=== PATIENT | female | born 1970 | race Caucasian/White ===

== ENCOUNTER 2019-12-03 15:12 | Inpatient (IN) | payer MEDICAID, OTHER ==
[~2019-12-03] VITALS: Ht 152.4 cm; Wt 64.1 kg
[~2019-12-03 15:12] MED LIST: FLUP10 PO; PARO20TA24 PO; TRIH5TAB2 PO
[2019-12-03] MEDS ORDERED: PROP20TA18 PO (16:40)
[2019-12-03] MEDS ORDERED: BENZ2TAB10 PO (16:40)
[2019-12-03 16:47] LABS: BASOPHILS % (AUTO) 0.3 % (0.0-2.0); EOSINOPHILS % (AUTO) 0.8 % (1.0-6.0); HEMATOCRIT 37.8 % (36-46); HEMOGLOBIN 12.4 g/dL (12.0-16.0); LYMPHOCYTES # (AUTO) 2.2 K/uL (1.0-4.8); LYMPHOCYTES % (AUTO) 28.5 % (22.0-44.0); MEAN CORPUSCULAR HEMOGLOBIN 30.7 pg (26.0-34.0); MEAN CORPUSCULAR HGB CONC 32.7 G/dL (31.0-37.0); MEAN CORPUSCULAR VOLUME 94 fL (80-100); MONOCYTES # (AUTO) 0.6 K/uL (0.1-1.0); MONOCYTES % (AUTO) 7.7 % (2.0-9.0); NEUTROPHILS # (AUTO) 4.9 K/uL (1.8-7.7); NEUTROPHILS % (AUTO) 62.7 % (40.0-70.0); PLATELET COUNT (AUTO) 229 K/uL (150-450); RED BLOOD CELL COUNT(AUTO) 4.02 MIL/uL (4.00-5.20); RED CELL DISTRIBUTION WIDTH 13.9 % (11.5-14.5)
[2019-12-03 17:01] LABS: ANION GAP 10 mmol/L (8-16); CALCIUM, TOTAL 9.7 mg/dL (8.8-10.5); CARBON DIOXIDE 24 mmol/L (22-29); CHLORIDE 103 mmol/L (98-107); CREATININE 1.03 mg/dL (0.60-1.30); GLOMERULAR FILTR. RATE CALC 57 mL/min (>60); GLUCOSE,RANDOM 75 mg/dL (70-110); SODIUM SERUM 137 mmol/L (136-145); UREA NITROGEN, BLOOD 22 mg/dL (7-18)
[2019-12-03 17:16] LABS: ALANINE AMINOTRANSFERASE 28 U/L (12-78); ALBUMIN 3.8 g/dL (3.4-5.0); ALKALINE PHOSPHATASE 29 U/L (46-116); ASPARTATE AMINOTRANSFERASE 18 U/L (15-37); BILIRUBIN,TOTAL 0.6 mg/dL (0.1-1.0); HCG,QUANTITATIVE 2 mIU/mL (0-6); THYROID STIMULATING HORMONE 0.98 uIU/mL (0.36-3.74); TOTAL PROTEIN, SERUM 7.5 g/dL (6.4-8.2)
[2019-12-03 18:09] LABS: AMPHET/METH SCREEN,URINE NEGATIVE (NEGATIVE); BARBITURATE SCREEN, URINE NEGATIVE (NEGATIVE); BENZODIAZEPINES SCREEN,URINE NEGATIVE (NEGATIVE); CANNABINOID SCREEN,URINE NEGATIVE (NEGATIVE); COCAINE SCREEN,URINE NEGATIVE (NEGATIVE); METHADONE SCREEN, URINE NEGATIVE (NEGATIVE); OPIATE SCREEN,URINE NEGATIVE (NEGATIVE)
[2019-12-03 18:12] LABS: APPEARANCE,URINE CLOUDY (CLEAR); BILIRUBIN,URINE NEGATIVE (NEGATIVE); GLUCOSE, URINE (UA) NEGATIVE (NEGATIVE); KETONES,URINE NEGATIVE (NEGATIVE); LEUKOCYTE ESTERASE ,URINE LARGE (NEGATIVE); NITRATE,URINE POSITIVE (NEGATIVE); OCCULT BLOOD,URINE NEGATIVE (NEGATIVE); PROTEIN,URINE NEGATIVE (NEGATIVE); UROBILINOGEN,URINE 0.2 mg/dL (<=1.0)
[2019-12-03 18:13] LABS: PHENCYCLIDINE SCREEN,URINE NEGATIVE (NEGATIVE)
[2019-12-03 18:21] LABS: BACTERIA,URINE Many /HPF (None Seen); RBC,URINE 0-2 /HPF (0-2)
[2019-12-03 18:22] LABS: WBC,URINE 26-50 /HPF (0-5)
[2019-12-03 18:24] LABS: SQUAMOUS EPITHELIAL CELL,UR Few /LPF (None Seen)
[2019-12-03] MEDS ORDERED: CefTRIAXone 1 GM/DEXTROSE 50 ML IV ONE (19:00)
[2019-12-03] MEDS ORDERED: SODIUM CHLORIDE 0.9% 1,000 ML IV ONE ×2 (19:45→21:15)
[2019-12-03] MEDS ORDERED: MAGNESIUM HYDROXIDE SUSPENSION 30 ML UDCUP PO PRN (21:15)
[2019-12-03] MEDS ORDERED: ACETAMINOPHEN 325 MG TABLET PO PRN (21:15)
[2019-12-03] MEDS ORDERED: HYDROCODONE/ACETAMINOPHEN 5-325 MG TABLET PO PRN (21:15)
[2019-12-03] MEDS ORDERED: ZOLPIDEM TARTRATE 5 MG TABLET PO PRN (21:15)
[2019-12-03] MEDS ORDERED: ONDANSETRON HCL 4 MG/2 ML VIAL IVP PRN (21:15)
[2019-12-03] MEDS ORDERED: MORPHINE SULFATE 2 MG/ML SYRINGE IVP PRN (21:15)
[2019-12-03] MEDS ORDERED: BISACODYL 10 MG RECTAL RECTAL SUPPOSITORY PR PRN (21:15)
[2019-12-03 22:20] VITALS: BP 113/71
[2019-12-03] MEDS: HEPARIN SODIUM,PORCINE 5,000 UNITS/ML VIAL SQ SCH (23:01)
[2019-12-04 04:48] VITALS: BP 103/70
[2019-12-04 06:21] LABS: BASOPHILS % (AUTO) 0.5 % (0.0-2.0); EOSINOPHILS % (AUTO) 1.1 % (1.0-6.0); HEMATOCRIT 35.2 % (36-46); HEMOGLOBIN 11.4 g/dL (12.0-16.0); LYMPHOCYTES # (AUTO) 1.9 K/uL (1.0-4.8); MEAN CORPUSCULAR HEMOGLOBIN 30.9 pg (26.0-34.0); MEAN CORPUSCULAR HGB CONC 32.4 G/dL (31.0-37.0); MEAN CORPUSCULAR VOLUME 95 fL (80-100); MONOCYTES # (AUTO) 0.4 K/uL (0.1-1.0); MONOCYTES % (AUTO) 7.6 % (2.0-9.0); NEUTROPHILS # (AUTO) 2.8 K/uL (1.8-7.7); NEUTROPHILS % (AUTO) 53.8 % (40.0-70.0); PLATELET COUNT (AUTO) 205 K/uL (150-450); RED CELL DISTRIBUTION WIDTH 14.2 % (11.5-14.5)
[2019-12-04 06:37] LABS: CALCIUM, TOTAL 8.9 mg/dL (8.8-10.5); CREATININE 1.03 mg/dL (0.60-1.30); POTASSIUM 3.8 mmol/L (3.5-5.1)
[2019-12-04 07:21] VITALS: BP 129/85
[2019-12-04] MEDS: HEPARIN SODIUM,PORCINE 5,000 UNITS/ML VIAL SQ SCH ×3 (08:54→23:26)
[2019-12-04] MEDS: DOCUSATE SODIUM 100 MG CAPSULE PO SCH ×2 (08:54→20:13)
[2019-12-04] MEDS: PARoxetine HCL 20 MG TABLET PO SCH (08:55)
[2019-12-04] MEDS: BENZTROPINE MESYLATE 2 MG TABLET PO SCH ×2 (08:55→20:13)
[2019-12-04] MEDS: TRIHEXYPHENIDYL HCL 5 MG TABLET PO SCH ×3 (08:56→20:13)
[2019-12-04] MEDS: PANTOPRAZOLE SODIUM 40 MG DR TABLET PO SCH (08:56)
[2019-12-04] MEDS ORDERED: PROPRANOLOL HCL 20 MG TABLET PO SCH (09:00)
[2019-12-04] MEDS: PROPRANOLOL HCL 10 MG TABLET PO SCH ×2 (09:09→20:13)
[2019-12-04 11:30] VITALS: BP 139/89
[2019-12-04 15:57] VITALS: BP 134/76
[2019-12-04 19:27] VITALS: BP 143/87
[2019-12-04] MEDS ORDERED: SODIUM CHLORIDE 0.9% 500 ML IV ONE (20:10)
[2019-12-04] MEDS ORDERED: CefTRIAXone 1 GM/DEXTROSE 50 ML IV SCH (21:00)
[2019-12-05 00:07] VITALS: BP 123/80
[2019-12-05 04:45] VITALS: BP 120/79
[2019-12-05 06:40] LABS: BASOPHILS % (AUTO) 0.2 % (0.0-2.0); EOSINOPHILS % (AUTO) 0.2 % (1.0-6.0); HEMATOCRIT 37.7 % (36-46); HEMOGLOBIN 12.5 g/dL (12.0-16.0); LYMPHOCYTES # (AUTO) 1.4 K/uL (1.0-4.8); LYMPHOCYTES % (AUTO) 13.6 % (22.0-44.0); MEAN CORPUSCULAR HEMOGLOBIN 31.3 pg (26.0-34.0); MEAN CORPUSCULAR HGB CONC 33.2 G/dL (31.0-37.0); MEAN CORPUSCULAR VOLUME 94 fL (80-100); MONOCYTES # (AUTO) 0.8 K/uL (0.1-1.0); MONOCYTES % (AUTO) 7.4 % (2.0-9.0); NEUTROPHILS % (AUTO) 78.6 % (40.0-70.0); PLATELET COUNT (AUTO) 235 K/uL (150-450); RED BLOOD CELL COUNT(AUTO) 3.99 MIL/uL (4.00-5.20); RED CELL DISTRIBUTION WIDTH 14.2 % (11.5-14.5)
[2019-12-05 07:50] VITALS: BP 133/83
[2019-12-05] MEDS: BENZTROPINE MESYLATE 2 MG TABLET PO SCH (08:53)
[2019-12-05] MEDS: PARoxetine HCL 20 MG TABLET PO SCH (08:53)
[2019-12-05] MEDS: PANTOPRAZOLE SODIUM 40 MG DR TABLET PO SCH (08:53)
[2019-12-05] MEDS: DOCUSATE SODIUM 100 MG CAPSULE PO SCH ×2 (08:53→09:00)
[2019-12-05] MEDS: TRIHEXYPHENIDYL HCL 5 MG TABLET PO SCH ×2 (08:55→16:21)
[2019-12-05] MEDS: HEPARIN SODIUM,PORCINE 5,000 UNITS/ML VIAL SQ SCH ×2 (08:56→16:00)
[2019-12-05] MEDS: PROPRANOLOL HCL 10 MG TABLET PO SCH (09:22)
[2019-12-05 11:33] VITALS: BP 119/62
[2019-12-05 15:08] VITALS: BP 113/73
== END 2019-12-05 18:00 | DRG 463 ==
LOC: EMS 15:16 → 6S 21:01 → 4E 12-05 07:30
PROVIDERS: ADMIT Internal Medicine; ATTEND Internal Medicine
DX: N39.0 Urinary tract infection, site not specified (principal); G93.41 Metabolic encephalopathy; F31.9 Bipolar disorder, unspecified; J45.909 Unspecified asthma, uncomplicated; Z20.828 Contact with and (suspected) exposure to other viral communicable diseases; Z78.1 Physical restraint status; Z87.442 Personal history of urinary calculi; Z88.8 Allergy status to other drugs, medicaments and biological substances; Z91.013 Allergy to seafood
CPT/HCPCS: 51701; 84439; 84443; 87086; 99291; G0480; J0696; J1644; J7030; J7040

== ENCOUNTER 2019-12-29 13:42 | Emergency (ER) | payer OTHER ==
[~2019-12-29] VITALS: Ht 170.2 cm; Wt 65.0 kg
[~2019-12-29 13:42] MED LIST changes: +BENZ2TAB10 PO; +PROP20TA18 PO
[2019-12-29] MEDS ORDERED: DiphenhydrAMINE HCL 50 MG/ML VIAL ONE (14:03)
[2019-12-29] MEDS ORDERED: HALOPERIDOL LACTATE 5 MG/ML VIAL ONE (14:03)
[2019-12-29] MEDS ORDERED: LORazepam 2 MG/ML VIAL ONE (14:03)
[2019-12-29] MEDS ORDERED: DiphenhydrAMINE HCL 50 MG/ML VIAL IM ONE (14:15)
[2019-12-29] MEDS ORDERED: HALOPERIDOL LACTATE 5 MG/ML VIAL IM ONE (14:15)
[2019-12-29] MEDS ORDERED: LORazepam 2 MG/ML VIAL IM ONE (14:15)
[2019-12-29] MEDS ORDERED: MULT-264 PO (14:53)
[2019-12-29] MEDS ORDERED: TRIH2ELI2 PO (14:53)
[2019-12-29] MEDS ORDERED: BISA10SU11 PR (14:53)
[2019-12-29] MEDS ORDERED: LORA2I IM (14:53)
[2019-12-29] MEDS ORDERED: BENZ2TAB10 PO (14:53)
[2019-12-29] MEDS ORDERED: OLAN5TAB2 PO (14:53)
[2019-12-29] MEDS ORDERED: DOCU-275 PO (14:53)
[2019-12-29] MEDS ORDERED: FE RC (14:53)
[2019-12-29] MEDS ORDERED: MAGN296S PO (14:53)
[2019-12-29] MEDS ORDERED: PANT-31 PO (14:53)
[2019-12-29] MEDS ORDERED: RISP2TAB23 PO (14:53)
[2019-12-29 15:21] LABS: BASOPHILS % (AUTO) 0.4 % (0.0-2.0); EOSINOPHILS % (AUTO) 1.5 % (1.0-6.0); HEMATOCRIT 36.5 % (36-46); HEMOGLOBIN 12.1 g/dL (12.0-16.0); LYMPHOCYTES # (AUTO) 1.9 K/uL (1.0-4.8); LYMPHOCYTES % (AUTO) 27.3 % (22.0-44.0); MEAN CORPUSCULAR HEMOGLOBIN 31.3 pg (26.0-34.0); MEAN CORPUSCULAR HGB CONC 33.2 G/dL (31.0-37.0); MEAN CORPUSCULAR VOLUME 94 fL (80-100); MONOCYTES # (AUTO) 0.7 K/uL (0.1-1.0); MONOCYTES % (AUTO) 10.5 % (2.0-9.0); NEUTROPHILS # (AUTO) 4.1 K/uL (1.8-7.7); NEUTROPHILS % (AUTO) 60.3 % (40.0-70.0); PLATELET COUNT (AUTO) 203 K/uL (150-450); RED BLOOD CELL COUNT(AUTO) 3.87 MIL/uL (4.00-5.20); RED CELL DISTRIBUTION WIDTH 14.3 % (11.5-14.5)
[2019-12-29 15:32] LABS: ANION GAP 6 mmol/L (8-16); CALCIUM, TOTAL 9.3 mg/dL (8.8-10.5); CARBON DIOXIDE 29 mmol/L (22-29); CHLORIDE 103 mmol/L (98-107); CREATININE 0.89 mg/dL (0.60-1.30); GLOMERULAR FILTR. RATE CALC > 60 mL/min (>60); GLUCOSE,RANDOM 83 mg/dL (70-110); POTASSIUM 3.8 mmol/L (3.5-5.1); SODIUM SERUM 138 mmol/L (136-145); UREA NITROGEN, BLOOD 27 mg/dL (7-18)
[2019-12-29 15:45] LABS: ALANINE AMINOTRANSFERASE 31 U/L (12-78); ALBUMIN 3.4 g/dL (3.4-5.0); ALKALINE PHOSPHATASE 41 U/L (46-116); ASPARTATE AMINOTRANSFERASE 18 U/L (15-37); BILIRUBIN,TOTAL 0.3 mg/dL (0.1-1.0); HCG,QUANTITATIVE 1 mIU/mL (0-6); TOTAL PROTEIN, SERUM 7.2 g/dL (6.4-8.2)
[2019-12-29 20:33] VITALS: BP 119/68
== END 2019-12-29 21:33 | disposition home or self-care (01) ==
LOC: EMS 13:43
DX: F25.9 Schizoaffective disorder, unspecified (principal); F41.9 Anxiety disorder, unspecified; F69 Unspecified disorder of adult personality and behavior; J45.909 Unspecified asthma, uncomplicated; F31.9 Bipolar disorder, unspecified; K21.9 Gastro-esophageal reflux disease without esophagitis; I10 Essential (primary) hypertension; Z88.8 Allergy status to other drugs, medicaments and biological substances; Z91.013 Allergy to seafood
CPT/HCPCS: 36415; 80053; 84702; 85025; 96372; 99291; G0480; J1200; J1630; J2060

== ENCOUNTER 2020-01-07 14:59 | Inpatient (IN) | payer MEDICAID, OTHER ==
[~2020-01-07] VITALS: Ht 162.6 cm; Wt 59.1 kg
[~2020-01-07 14:59] MED LIST changes: +BISA10SU11 PR; +DOCU-275 PO; +FE RC; +LORA2I IM; +MAGN296S PO; +MULT-264 PO; +OLAN5TAB2 PO; +PANT-31 PO; -PARO20TA24 PO; -PROP20TA18 PO; +RISP2TAB23 PO; +TRIH2ELI2 PO; -TRIH5TAB2 PO
[2020-01-07] MEDS ORDERED: HALOPERIDOL LACTATE 5 MG/ML VIAL IM ONE ×2 (15:30→17:00)
[2020-01-07] MEDS ORDERED: DiphenhydrAMINE HCL 50 MG/ML VIAL IM ONE ×2 (15:30→17:00)
[2020-01-07 16:03] LABS: BASOPHILS % (AUTO) 0.4 % (0.0-2.0); EOSINOPHILS % (AUTO) 1.2 % (1.0-6.0); HEMATOCRIT 34.6 % (36-46); HEMOGLOBIN 11.6 g/dL (12.0-16.0); LYMPHOCYTES # (AUTO) 2.1 K/uL (1.0-4.8); LYMPHOCYTES % (AUTO) 28.5 % (22.0-44.0); MEAN CORPUSCULAR HEMOGLOBIN 31.6 pg (26.0-34.0); MEAN CORPUSCULAR HGB CONC 33.4 G/dL (31.0-37.0); MEAN CORPUSCULAR VOLUME 94 fL (80-100); MONOCYTES # (AUTO) 0.5 K/uL (0.1-1.0); MONOCYTES % (AUTO) 7.5 % (2.0-9.0); NEUTROPHILS # (AUTO) 4.5 K/uL (1.8-7.7); NEUTROPHILS % (AUTO) 62.4 % (40.0-70.0); PLATELET COUNT (AUTO) 212 K/uL (150-450); RED BLOOD CELL COUNT(AUTO) 3.67 MIL/uL (4.00-5.20); RED CELL DISTRIBUTION WIDTH 13.8 % (11.5-14.5)
[2020-01-07 16:12] LABS: ANION GAP 8 mmol/L (8-16); CALCIUM, TOTAL 9.1 mg/dL (8.8-10.5); CARBON DIOXIDE 27 mmol/L (22-29); CHLORIDE 106 mmol/L (98-107); CREATININE 0.83 mg/dL (0.60-1.30); GLOMERULAR FILTR. RATE CALC > 60 mL/min (>60); GLUCOSE,RANDOM 87 mg/dL (70-110); SODIUM SERUM 141 mmol/L (136-145); UREA NITROGEN, BLOOD 22 mg/dL (7-18)
[2020-01-07 16:26] LABS: ALANINE AMINOTRANSFERASE 28 U/L (12-78); ALBUMIN 3.3 g/dL (3.4-5.0); ALKALINE PHOSPHATASE 35 U/L (46-116); ASPARTATE AMINOTRANSFERASE 19 U/L (15-37); BILIRUBIN,TOTAL 0.2 mg/dL (0.1-1.0); HCG,QUANTITATIVE 1 mIU/mL (0-6); TOTAL PROTEIN, SERUM 6.8 g/dL (6.4-8.2)
[2020-01-07] MEDS ORDERED: LORazepam 2 MG/ML VIAL IM ONE (17:00)
[2020-01-07 19:53] LABS: COVID AG,FIA SOURCE NASOPHARYNGEAL
[2020-01-07] MEDS: LORazepam 2 MG TABLET PO PRN (20:22)
[2020-01-07] MEDS: HALOPERIDOL 5 MG TABLET PO PRN (20:22)
[2020-01-07 20:38] LABS: APPEARANCE,URINE CLOUDY (CLEAR); BILIRUBIN,URINE NEGATIVE (NEGATIVE); GLUCOSE, URINE (UA) NEGATIVE (NEGATIVE); KETONES,URINE NEGATIVE (NEGATIVE); LEUKOCYTE ESTERASE ,URINE NEGATIVE (NEGATIVE); NITRATE,URINE NEGATIVE (NEGATIVE); OCCULT BLOOD,URINE NEGATIVE (NEGATIVE); PROTEIN,URINE NEGATIVE (NEGATIVE); UROBILINOGEN,URINE 0.2 mg/dL (<=1.0)
[2020-01-07 20:43] LABS: AMPHET/METH SCREEN,URINE NEGATIVE (NEGATIVE); BARBITURATE SCREEN, URINE NEGATIVE (NEGATIVE); BENZODIAZEPINES SCREEN,URINE NEGATIVE (NEGATIVE); CANNABINOID SCREEN,URINE NEGATIVE (NEGATIVE); COCAINE SCREEN,URINE NEGATIVE (NEGATIVE); METHADONE SCREEN, URINE NEGATIVE (NEGATIVE); OPIATE SCREEN,URINE NEGATIVE (NEGATIVE)
[2020-01-07 20:45] LABS: PHENCYCLIDINE SCREEN,URINE NEGATIVE (NEGATIVE)
[2020-01-07] MEDS ORDERED: ZIPRASIDONE MESYLATE 20 MG/VIAL IM ONE (20:45)
[2020-01-07 20:46] LABS: BACTERIA,URINE Rare /HPF (None Seen); RBC,URINE None Seen /HPF (0-2); SQUAMOUS EPITHELIAL CELL,UR Rare /LPF (None Seen); WBC,URINE 0-2 /HPF (0-5)
[2020-01-08] MEDS: HALOPERIDOL 5 MG TABLET PO PRN ×2 (04:50→08:47)
[2020-01-08] MEDS: LORazepam 2 MG TABLET PO PRN ×3 (04:50→18:31)
[2020-01-08] MEDS ORDERED: ACETAMINOPHEN 325 MG TABLET PO PRN (07:45)
[2020-01-08] MEDS ORDERED: DOCUSATE SODIUM 100 MG CAPSULE PO PRN (07:45)
[2020-01-08] MEDS ORDERED: BISACODYL 10 MG RECTAL RECTAL SUPPOSITORY PR PRN (07:45)
[2020-01-08] MEDS ORDERED: NICOTINE 14 MG/24 HOUR PATCH TD PRN (07:45)
[2020-01-08] MEDS ORDERED: ALBUTEROL SULFATE HFA 90 MCG/PUFF 8 GM INHALER IH PRN (07:45)
[2020-01-08] MEDS ORDERED: GuaiFENesin/D-METHORPHAN [SUGAR-FREE] 200-20MG/10 ML SYRUP UDCUP PO PRN (07:45)
[2020-01-08] MEDS ORDERED: LOPERAMIDE HCL 2 MG CAPSULE PO PRN (07:45)
[2020-01-08] MEDS ORDERED: ONDANSETRON HCL 4 MG TABLET PO PRN (07:45)
[2020-01-08] MEDS ORDERED: MAG HYDROX/AL HYDROX/SIMETH ES 30 ML SUSPENSION UDCUP PO PRN (07:45)
[2020-01-08] MEDS ORDERED: CloNIDine HCL 0.1 MG TABLET PO PRN (07:45)
[2020-01-08] MEDS ORDERED: MAGNESIUM HYDROXIDE SUSPENSION 30 ML UDCUP PO PRN (07:45)
[2020-01-08] MEDS ORDERED: PETROLATUM,WHITE 28 GM JELLY TP PRN (07:45)
[2020-01-08] MEDS: PANTOPRAZOLE SODIUM 40 MG DR TABLET PO SCH (08:25)
[2020-01-08] MEDS: MULTIVITAMINS, THERAPEUTIC TABLET PO SCH (09:00)
[2020-01-08] MEDS ORDERED: LORazepam 2 MG/ML VIAL IM ONE ×2 (10:30→12:15)
[2020-01-08] MEDS ORDERED: DiphenhydrAMINE HCL 50 MG/ML VIAL IM ONE (10:30)
[2020-01-08] MEDS ORDERED: HALOPERIDOL LACTATE 5 MG/ML VIAL IM ONE (10:30)
[2020-01-08] MEDS ORDERED: ZIPRASIDONE MESYLATE 20 MG/VIAL IM ONE ×2 (12:15→12:30)
[2020-01-08] MEDS: ZIPRASIDONE MESYLATE 20 MG/VIAL IM ONE ×2 (12:47→13:02)
[2020-01-08] MEDS: ZOLPIDEM TARTRATE 10 MG TABLET PO PRN (20:03)
[2020-01-09] MEDS ORDERED: ZIPRASIDONE MESYLATE 20 MG/VIAL IM ONE ×2 (02:15→05:00)
[2020-01-09] MEDS ORDERED: LORazepam 2 MG/ML VIAL IM ONE ×2 (02:15→07:45)
[2020-01-09] MEDS ORDERED: DiphenhydrAMINE HCL 50 MG/ML VIAL IM ONE (02:15)
[2020-01-09] MEDS ORDERED: KETAMINE HCL 50 MG/ML 10 ML VIAL IM ONE ×2 (07:30→08:00)
[2020-01-09] MEDS: PANTOPRAZOLE SODIUM 40 MG DR TABLET PO SCH (09:00)
[2020-01-09] MEDS: MULTIVITAMINS, THERAPEUTIC TABLET PO SCH (09:00)
[2020-01-09 16:16] VITALS: BP 113/68
[2020-01-09] MEDS: HALOPERIDOL 5 MG TABLET PO PRN (16:38)
[2020-01-09] MEDS: LORazepam 2 MG TABLET PO PRN (16:38)
[2020-01-09 18:52] VITALS: BP 122/70
[2020-01-09] MEDS: IBUPROFEN 400 MG TABLET PO PRN (18:52)
[2020-01-09] MEDS: ZOLPIDEM TARTRATE 10 MG TABLET PO PRN (22:13)
[2020-01-10] MEDS ORDERED: PNEUMOCOCCAL VACCINE POLYVALENT 0.5 ML VIAL [PPSV23] IM ONE (01:00)
[2020-01-10 01:13] VITALS: BP 115/66
[2020-01-10] MEDS: LORazepam 2 MG TABLET PO PRN ×2 (03:12→14:28)
[2020-01-10 08:22] VITALS: BP 106/62
[2020-01-10] MEDS: MULTIVITAMINS, THERAPEUTIC TABLET PO SCH (10:03)
[2020-01-10] MEDS: PANTOPRAZOLE SODIUM 40 MG DR TABLET PO SCH (10:03)
[2020-01-10 16:05] VITALS: BP 103/67
[2020-01-10] MEDS: BENZTROPINE MESYLATE 2 MG TABLET PO SCH (17:06)
[2020-01-10] MEDS: RisperiDONE 2 MG TABLET PO SCH (17:06)
[2020-01-10] MEDS ORDERED: BENZOCAINE 10% 7 GM GEL TP PRN (18:15)
[2020-01-10] MEDS: DOCUSATE SODIUM 100 MG CAPSULE PO SCH (20:04)
[2020-01-10] MEDS: OLANZapine 10 MG TABLET PO SCH (20:04)
[2020-01-10] MEDS: TRIHEXYPHENIDYL HCL 5 MG TABLET PO SCH (20:04)
[2020-01-11 02:50] VITALS: BP 104/62
[2020-01-11] MEDS: IBUPROFEN 400 MG TABLET PO PRN (02:57)
[2020-01-11] MEDS: FERROUS SULFATE 325 MG EC TABLET PO SCH ×3 (06:46→17:00)
[2020-01-11 08:02] VITALS: BP 124/74
[2020-01-11] MEDS: DOCUSATE SODIUM 100 MG CAPSULE PO SCH ×2 (08:12→17:00)
[2020-01-11] MEDS: FLUoxetine HCL 20 MG CAPSULE PO SCH (08:12)
[2020-01-11] MEDS: RisperiDONE 2 MG TABLET PO SCH ×2 (08:13→17:11)
[2020-01-11] MEDS: PARoxetine HCL 20 MG TABLET PO SCH (08:13)
[2020-01-11] MEDS: MULTIVITAMINS, THERAPEUTIC TABLET PO SCH (08:13)
[2020-01-11] MEDS: PANTOPRAZOLE SODIUM 40 MG DR TABLET PO SCH (08:13)
[2020-01-11] MEDS: TRIHEXYPHENIDYL HCL 5 MG TABLET PO SCH ×3 (08:13→17:11)
[2020-01-11] MEDS: PROPRANOLOL HCL 20 MG TABLET PO SCH ×2 (08:14→17:00)
[2020-01-11 08:39] LABS: FREE T4 (FREE THYROXINE) 1.09 ng/dL (0.76-1.46); THYROID STIMULATING HORMONE 2.43 uIU/mL (0.36-3.74)
[2020-01-11] MEDS ORDERED: PANTOPRAZOLE SODIUM 40 MG DR TABLET PO SCH (09:00)
[2020-01-11] MEDS: BENZTROPINE MESYLATE 2 MG TABLET PO SCH ×2 (09:03→17:11)
[2020-01-11] MEDS: LORazepam 2 MG TABLET PO PRN ×2 (09:11→13:33)
[2020-01-11 16:02] VITALS: BP 124/78
[2020-01-11] MEDS: OLANZapine 10 MG TABLET PO SCH (20:28)
[2020-01-12 01:26] VITALS: BP 116/72
[2020-01-12] MEDS: FERROUS SULFATE 325 MG EC TABLET PO SCH (06:57)
[2020-01-12 08:10] VITALS: BP 113/89
[2020-01-12] MEDS ORDERED: ARIPiprazole ER SUSPENSION 400 MG PRE-FILLED DUAL CHAMBER SYRINGE IM SCH (09:00)
[2020-01-12] MEDS: BENZTROPINE MESYLATE 2 MG TABLET PO SCH (09:16)
[2020-01-12] MEDS: PANTOPRAZOLE SODIUM 40 MG DR TABLET PO SCH (09:16)
[2020-01-12] MEDS: TRIHEXYPHENIDYL HCL 5 MG TABLET PO SCH (09:16)
[2020-01-12] MEDS: RisperiDONE 2 MG TABLET PO SCH (09:16)
[2020-01-12] MEDS: DOCUSATE SODIUM 100 MG CAPSULE PO SCH (09:16)
[2020-01-12] MEDS: FLUoxetine HCL 20 MG CAPSULE PO SCH (09:16)
[2020-01-12] MEDS: MULTIVITAMINS, THERAPEUTIC TABLET PO SCH (09:16)
[2020-01-12] MEDS: PARoxetine HCL 20 MG TABLET PO SCH (09:16)
[2020-01-12] MEDS: PROPRANOLOL HCL 20 MG TABLET PO SCH (09:17)
[2020-01-12] MEDS ORDERED: OLAN10TA3 PO (10:12)
[2020-01-12] MEDS ORDERED: FLUO-191 PO (10:13)
[2020-01-12] MEDS ORDERED: ARIP400S3 IM (10:13)
[2020-01-12] MEDS ORDERED: FERR-89 PO (10:13)
[2020-01-12] MEDS ORDERED: PROP20TA18 PO (10:13)
[2020-01-12] MEDS ORDERED: PARO20TA24 PO (10:13)
[2020-01-20] MEDS ORDERED: ARIPiprazole ER SUSPENSION 400 MG PRE-FILLED DUAL CHAMBER SYRINGE IM SCH (09:00)
== END 2020-01-12 10:15 | DRG 750 ==
LOC: EMS 15:01 → B3A 01-09 15:13
PROVIDERS: ADMIT Psychiatry & Neurology Psychiatry; ATTEND Psychiatry & Neurology Psychiatry
DX: F25.9 Schizoaffective disorder, unspecified (principal); I10 Essential (primary) hypertension; J45.909 Unspecified asthma, uncomplicated; K21.9 Gastro-esophageal reflux disease without esophagitis; K59.00 Constipation, unspecified; R45.851 Suicidal ideations; F41.9 Anxiety disorder, unspecified; Z20.828 Contact with and (suspected) exposure to other viral communicable diseases; D64.9 Anemia, unspecified; Z78.1 Physical restraint status; Z87.442 Personal history of urinary calculi; Z87.440 Personal history of urinary (tract) infections; Z79.899 Other long term (current) drug therapy; Z88.8 Allergy status to other drugs, medicaments and biological substances; Z91.013 Allergy to seafood
CPT/HCPCS: 84439; 84443; 87426; 96372; 99291; G0480; J0401; J1200; J1630; J2060; J3486